=== PATIENT | female | born 1995 | race Caucasian/White ===

== ENCOUNTER 2018-02-12 15:11 | Inpatient (IN) | payer OTHER ==
[~2018-02-12] VITALS: Ht 167.6 cm; Wt 85.4 kg
[2018-02-12 15:17] VITALS: Ht 167.6 cm; Wt 85.4 kg
[2018-02-12 18:59] LABS: microscopic required? NO
[2018-02-12 19:11] LABS: urine erythrocyte NEGATIVE (NEGATIVE)
[2018-02-12 19:15] LABS: CARBON DIOXIDE 23.2 mmol/L (21-32); CHLORIDE SERUM 104 mmol/L (98-107); CREATININE SERUM 0.6 mg/dL (0.6-1.0); GFR1 > 60 mL/min; GLUCOSE SERUM 69 mg/dL (74-106); POTASSIUM SERUM 3.8 mmol/L (3.5-5.1); SODIUM SERUM 138 mmol/L (136-145)
[2018-02-12 19:20] LABS: ALKALINE PHOSPHATASE 55 U/L (46-116); ALT/SGPT 18 U/L (14-59); AST/SGOT 12 U/L (15-37); BASOPHIL % 0.4 % (0-2); BILIRUBIN TOTAL 0.2 mg/dL (0.20-1.00); PLATELET COUNT 233 x10^3mcL (130-400); RED CELL DISTRIBUTION WIDTH 14.2 % (11.5-14.5); TOTAL PROTEIN, SERUM 6.7 g/dL (6.4-8.2)
[2018-02-12 19:21] LABS: ALBUMIN 3.2 g/dL (3.4-5.0)
[2018-02-12 22:04] VITALS: BP 96/44
[2018-02-12 22:58] LABS: MAGNESIUM 1.6 mg/dL (1.8-2.4); PHOSPHOROUS 4.4 mg/dL (2.5-4.9)
[2018-02-12 23:02] LABS: AMPHETAMINE QUAL UR NONE DETECTED (See below)
[2018-02-12 23:05] LABS: T3 TOTAL 1.67 ng/mL
[2018-02-12 23:06] LABS: FREE T4 1.04 ng/dL (0.76-1.46); FREE THYROXINE INDEX 2.7 ug/dL (1.4-4.5); T4(THYROXINE) 10.7 ug/dL (4.7-13.3)
[2018-02-13 05:46] VITALS: BP 96/51
[2018-02-13 06:45] LABS: CARBON DIOXIDE 21.9 mmol/L (21-32); CHLORIDE SERUM 108 mmol/L (98-107); CHOLESTEROL 167 mg/dL (<200); CHOLESTEROL/HDL RATIO 2.9; CREATININE SERUM 0.5 mg/dL (0.6-1.0); GFR1 > 60 mL/min; GLUCOSE SERUM 72 mg/dL (74-106); HDL CHOLESTEROL 57 mg/dL (40-60); POTASSIUM SERUM 3.8 mmol/L (3.5-5.1); SODIUM SERUM 139 mmol/L (136-145); TRIGLYCERIDES 57 mg/dL (<150)
[2018-02-13 07:12] LABS: BASOPHIL % 0.6 % (0-2); PLATELET COUNT 234 x10^3mcL (130-400); RED CELL DISTRIBUTION WIDTH 13.8 % (11.5-14.5)
[2018-02-13 10:11] VITALS: BP 98/69
[2018-02-13 17:00] VITALS: BP 96/56
[2018-02-13 20:53] VITALS: BP 96/52
[2018-02-14 05:24] VITALS: BP 94/57
[2018-02-14 06:24] LABS: CALCIUM 7.8 mg/dL (8.5-10.1); CARBON DIOXIDE 21.7 mmol/L (21-32); CHLORIDE SERUM 107 mmol/L (98-107); CREATININE SERUM 0.5 mg/dL (0.6-1.0); GFR1 > 60 mL/min; GLUCOSE SERUM 72 mg/dL (74-106); MAGNESIUM 1.7 mg/dL (1.8-2.4); PHOSPHOROUS 3.1 mg/dL (2.5-4.9); POTASSIUM SERUM 3.9 mmol/L (3.5-5.1); SODIUM SERUM 138 mmol/L (136-145)
[2018-02-14 06:39] LABS: BASOPHIL % 0.3 % (0-2); PLATELET COUNT 223 x10^3mcL (130-400); RED CELL DISTRIBUTION WIDTH 13.8 % (11.5-14.5)
[2018-02-14 08:00] VITALS: BP 100/54
[2018-02-14] MEDS ORDERED: PRENATAL VITAMI1 TA1 PO (09:11)
[2018-02-14 11:11] VITALS: BP 100/54
== END 2018-02-14 13:00 | disposition home or self-care (01) | DRG 566 ==
LOC: ED 15:11 → DU 21:06 → MU 21:06 → DU 21:56 → MU 02-13 08:33
PROVIDERS: Emergency Medicine; Family Medicine
DX: O99.281 Endocrine, nutritional and metabolic diseases complicating pregnancy, first trimester (principal); E87.8 Other disorders of electrolyte and fluid balance, not elsewhere classified; O26.891 Other specified pregnancy related conditions, first trimester; E83.42 Hypomagnesemia; E83.51 Hypocalcemia; O99.321 Drug use complicating pregnancy, first trimester; O25.11 Malnutrition in pregnancy, first trimester; O99.011 Anemia complicating pregnancy, first trimester; R10.9 Unspecified abdominal pain; F12.10 Cannabis abuse, uncomplicated; D64.9 Anemia, unspecified; Z68.29 Body mass index [BMI] 29.0-29.9, adult; Z3A.14 14 weeks gestation of pregnancy
CPT/HCPCS: 83880; 84439; J2543; J3475; J3490; J7030; Q0092